=== PATIENT | female | born 1950 | race Caucasian/White ===

== ENCOUNTER 2016-03-18 20:05 | Emergency (ER) | payer MEDICARE, OTHER ==
--- NOTE | 2016-03-18 20:25 | ERPHSYRPT ---
- History of Present Illness Time Seen by Provider: 03/18/16 20:10 Source: patient Exam Limitations: no limitations Patient Subjective Stated Complaint: Pt sts shortness of breath since 1500 today she noticed when getting out of a chair. Sts short of breath since. Denies chest pain. Denies cough. Been taking Biaxin - since earlier this week for sinus infection. Sts dizzy upon standing, sts this is new for pt today. Sts she feels like her heart is "real jittery" Triage Nursing Assessment: Pt alert, oriented, able to answer all questions appropriately. Skin p/w/d, resps non-labored. SPO2 96% room air. Pt with difficulty sitting up in bed without assist. Lung sounds CTA bilat non-labored. Physician History: 66 y/o female with history of DM and HTN comes to the ER with complaints of shortness of breath, dizziness and palpitations that started today at 3 pm. Pt mentions she was sitting in a chair when she had dyspnea. Pt has been on biaxin for a sinus infection. Pt denies any fever, chills, chest pain, abdominal pain, nausea, vomiting, diarrhea, cough or wheezing. Last stress test was a couple of years ago. Timing/Duration: today Activities at Onset: none Severity of Dyspnea-Max: mild Severity of Dyspnea-Current: mild Possible Cause: no prior episodes Modifying Factors: Improves With: rest Associated Symptoms: No fever, No wheezing Allergies/Adverse Reactions: Iodinated Contrast Media - Oral and Allergy (Mild, Verified 03/18/16 21:09) Rash penicillin G Allergy (Mild, Verified 03/18/16 20:13) Sulfa (Sulfonamide Antibiotics) Allergy (Mild, Verified 03/18/16 20:13) Hives Home Medications: Allopurinol 100 mg [Zyloprim 100 mg] 100 mg PO DAILY 04/12/14 [History] Aspirin 81 gm Chew [Baby Aspirin 81 mg Chew] 81 mg PO DAILY 04/12/14 [ History] Clopidogrel Bisulfate 75 mg [PLAVIX 75 MG Tablet] 75 mg PO DAILY 04/12/14 [History] Famotidine [Pepcid] 40 mg PO DAILY 04/12/14 [History] Furosemide [Lasix] 40 mg PO DAILY 04/12/14 [History] Gabapentin 300 mg PO TID 04/12/14 [History] Insulin Glargine [Lantus Insulin] 40 units SQ DAILY 04/12/14 [History] Insulin Lispro [Humalog] 18 unit SQ BID 04/12/14 [History] Levothyroxine Sodium 75 Mcg [Synthroid 75 Mcg] 75 mcg PO DAILY 04/12/14 [ History] Metoprolol Succinate 50 mg [Toprol Xl 50 MG] 25 mg PO BID 04/12/14 [ History] [place]-3 Acid Ethyl Esters [Lovaza] 1 gm PO BID 04/12/14 [History] Rosuvastatin Calcium [Crestor] 10 mg PO DAILY 04/12/14 [History] Verapamil HCl Sr 240 mg [Isoptin S.r. 240 mg] 240 mg PO DAILY 04/12/14 [ History] PANTOPRAZOLE 40 mg Tablet [Protonix 40MG Tablet] 40 mg PO QPM 03/18/16 [ History] Hx Tetanus, Diphtheria Vaccination/Date Given: (UNSURE) Hx Influenza Vaccination/Date Given: No Hx Pneumococcal Vaccination/Date Given: No - Review of Systems Constitutional: No Fever, No Chills Eyes: No Symptoms Ears, Nose, & Throat: No Symptoms Respiratory: Dyspnea, No Cough, No Wheezing Cardiac: Palpitations, No Chest Pain, No Edema, No Syncope Abdominal/Gastrointestinal: No Abdominal Pain, No Nausea, No Vomiting, No Diarrhea Genitourinary Symptoms: No Dysuria Musculoskeletal: No Back Pain, No Neck Pain Skin: No Rash Neurological: Dizziness, No Focal Weakness, No Sensory Changes Psychological: No Symptoms Endocrine: No Symptoms All Other Systems: Reviewed and Negative - Past Medical History Pertinent Past Medical History: Yes Neurological History: No Pertinent History ENT History: No Pertinent History Cardiac History: Coronary Artery Disease, High Cholesterol, Hypertension Respiratory History: No Pertinent History Endocrine Medical History: Diabetes Type II Musculoskeletal History: No Pertinent History GI Medical History: No Pertinent History History: No Pertinent History Psycho-Social History: No Pertinent History Female Reproductive Disorders: No Pertinent History - Past Surgical History Past Surgical History: Yes (bilateral carotid end arterect) Neuro Surgical History: Other Cardiac: No Pertinent History Gastrointestinal: Cholecystectomy Genitourinary: No Pertinent History Musculoskeletal: Joint Replacement, Orthopedic Surgery Female Surgical History: No Pertinent History Other Surgical History: BRITTANY KNEE REPLACEMENT. BRITTANY CAROTID ENDOARECTOMY - Social History Smoking Status: Never smoker Exposure to second hand smoke: No Drug Use: none Patient Lives Alone: No - Nursing Vital Signs Nursing Vital Signs: Initial Vital Signs Temperature 97.7 F Temperature Source Oral Pulse Rate 54 Respiratory Rate 20 Blood Pressure 117/58 Pain Intensity 0 - Physical Exam General Appearance: mild distress, alert, anxiety Eye Exam: PERRL/EOMI Neck Exam: normal inspection, supple Cardiovascular/Chest Exam: normal heart sounds, regular rate/rhythm Abdominal/Gastrointestinal Exam: soft, No tenderness, No distention, No mass Extremity Exam: non-tender, normal range of motion, normal inspection, no calf tenderness, no pedal edema Neurologic Exam: alert, oriented x 3, cooperative, traveling clerk II-XII nml as tested, sensation nml, No motor deficits Skin Exam: normal color, warm, No dry SpO2: 98 Oxygen Delivery: Room Air - Course EKG Interpreted by Me: RATE (50), Sinus Rhythm, Other (flat t waves in V3, V4 and V6) Ordered Tests: Active Orders 24 hr Category Date Time Status EKG-ER Only STAT Care 03/18/16 20:17 Active CHEST 2 VIEWS (PA AND LAT) Stat Exams 03/18/16 20:18 Taken CBCD [CBC W DIFF] Stat Lab 03/18/16 20:29 Completed CK-Creatinine Phosphokinase Stat Lab 03/18/16 20:29 Completed CMP Stat Lab 03/18/16 20:29 Completed D-DIMER QUANTITATION Stat Lab 03/18/16 20:29 Completed Myoglobin Stat Lab 03/18/16 20:29 Completed TROPONIN Stat Lab 03/18/16 20:29 Completed Medication Summary Discontinued Medications Generic Name Dose Route Start Last Admin Trade Name Freq PRN Reason Stop Dose Admin Diphenhydramine HCl 50 mg 03/18/16 21:11 Benadryl 50 Mg/Ml IV 03/18/16 21:12 STAT ONE Hydrocortisone Sodium Succinate 100 mg 03/18/16 21:10 Solu-Cortef 100mg IV 03/18/16 21:11 STAT ONE Lab/Rad Data: Laboratory Result Diagrams 03/18/16 20:29 03/18/16 20:29 Laboratory Results 03/18/16 03/18/16 03/18/16 Range/Units 20:29 20:29 20:29 WBC (4.0-10.5) K/mm3 RBC (4.1-5.4) M/mm3 Hgb (12.0-16.0) gm/dl Hct (35-47) % MCV (78-100) fl MCH (26-32) pg MCHC (32-36) g/dl RDW (11.5-14.0) % Plt Count (150-450) K/mm3 MPV (6-9.5) fl Gran % (36.0-66.0) % Lymphocytes % (24.0-44.0) % Monocytes % (0.0-12.0) % Eosinophils % (0.00-5.0) % Basophils % (0.0-0.4) % Basophils # (0-0.4) D-Dimer 1.008 H* (0.00-0.49) mg/L Sodium 140 (136-145) mEq/L Potassium 4.4 (3.5-5.1) mEq/L Chloride 103 (98-107) mEq/L Carbon Dioxide 21.9 (21-32) mEq/L Anion Gap 19.4 H (5-15) MEQ/L BUN 30 H (9-20) mg/dL Creatinine 2.47 H (0.55-1.30) mg/dl Estimated GFR 21 ML/MIN Glucose 186 H (70-110) MG/DL Calcium 8.6 (8.5-10.1) mg/dL Total Bilirubin 0.2 (0.2-1.0) mg/dL AST 9 L (15-37) U/L ALT 15 (12-78) U/L Alkaline Phosphatase 98 (46-116) U/L Creatine Kinase 71 (26-192) U/L Myoglobin 77.0 (9.0-82.5) NG/ML Troponin I < 0.017 (0.000-0.056) ng/ml Serum Total Protein 7.1 (6.4-8.2) gm/dL Albumin 3.3 L (3.4-5.0) g/dL 03/18/16 Range/Units 20:29 WBC 9.9 (4.0-10.5) K/mm3 RBC 4.32 (4.1-5.4) M/mm3 Hgb 13.1 (12.0-16.0) gm/dl Hct 41.5 (35-47) % MCV 96.1 (78-100) fl MCH 30.3 (26-32) pg MCHC 31.6 L (32-36) g/dl RDW 13.8 (11.5-14.0) % Plt Count 220 (150-450) K/mm3 MPV 11.0 H (6-9.5) fl Gran % 63.7 (36.0-66.0) % Lymphocytes % 24.5 (24.0-44.0) % Monocytes % 10.2 (0.0-12.0) % Eosinophils % 1.3 (0.00-5.0) % Basophils % 0.3 (0.0-0.4) % Basophils # 0.03 (0-0.4) D-Dimer (0.00-0.49) mg/L Sodium (136-145) mEq/L Potassium (3.5-5.1) mEq/L Chloride (98-107) mEq/L Carbon Dioxide (21-32) mEq/L Anion Gap (5-15) MEQ/L BUN (9-20) mg/dL Creatinine (0.55-1.30) mg/dl Estimated GFR ML/MIN Glucose (70-110) MG/DL Calcium (8.5-10.1) mg/dL Total Bilirubin (0.2-1.0) mg/dL AST (15-37) U/L ALT (12-78) U/L Alkaline Phosphatase (46-116) U/L Creatine Kinase (26-192) U/L Myoglobin (9.0-82.5) NG/ML Troponin I (0.000-0.056) ng/ml Serum Total Protein (6.4-8.2) gm/dL Albumin (3.4-5.0) g/dL - Progress Progress: improved Air Movement: fair Progress Note: 03/18/16 21:32 Pt has an elevated d-dimer of over 1. The EKG shows a junctional rhythm with no p waves in lead II. The troponin is negative. Pt has a creatinine of 2.47 which is higher for her. Pt was recently started on biaxin and has been on verapamil, which this interaction may be causing ARF. Pt is not able to receive the CTA chest due to creatinine being so high. Pt will be transferred to [facility] for [facility] evaluation for dyspnea, EKG changes and will also need V/Q scan. Pt has been accepted by the Yumiko DELAROSA at [facility] - Departure Time of Disposition: 21:36 Departure Disposition: Transfer Clinical Impression: Dyspnea, Elevated d-dimer, ARF (acute renal failure) Condition: Stable Critical Care Time: Yes Critical Care Time(excluding separately billable procedures): 75-104 minutes
[2016-03-18 20:35] LABS: BASOPHIL % 0.3 % (0.0-0.4); Eosinophil % 1.3 % (0.00-5.0); Granulocytes % 63.7 % (36.0-66.0); Lymphocytes % 24.5 % (24.0-44.0); Mean Cell Volume 96.1 fl (78-100); Mean Corpuscular Hemoglobin 30.3 pg (26-32); Monocytes % 10.2 % (0.0-12.0); Platelet Count 220 K/mm3 (150-450); Red Blood Count 4.32 M/mm3 (4.1-5.4); Red Cell Distribution Width 13.8 % (11.5-14.0); White Blood Count 9.9 K/mm3 (4.0-10.5)
[2016-03-18 21:06] LABS: ALBUMIN 3.3 g/dL (3.4-5.0); ANION GAP 19.4 MEQ/L (5-15); BILIRUBIN,TOTAL 0.2 mg/dL (0.2-1.0); Carbon Dioxide 21.9 mEq/L (21-32); Potassium 4.4 mEq/L (3.5-5.1); Total Protein 7.1 gm/dL (6.4-8.2)
[2016-03-18] MEDS ORDERED: solu-CORTEF 100MG IV ONE (21:10)
[2016-03-18] MEDS ORDERED: BENADRYL 50 MG/ML IV ONE (21:11)
[2016-03-18 22:09] VITALS: BP 159/66; PULSE 64; O2SAT 97
--- NOTE | 2016-03-19 08:44 | XRAY ---
Indication: Short of breath. Dizziness. Comparison: April 12, 2014 AP/lateral chest remains clear. Heart is borderline enlarged. Vascularity normal. Bony thorax intact again with mild osteopenia and spinal degenerative changes. Impression: Stable nonacute chest.
== END 2016-03-18 22:40 | disposition short-term general hospital (02) ==
LOC: ED 20:05
DX: R06.00 Dyspnea, unspecified (principal); R79.1 Abnormal coagulation profile; N17.9 Acute kidney failure, unspecified; R42 Dizziness and giddiness; R00.2 Palpitations; E11.9 Type 2 diabetes mellitus without complications; I10 Essential (primary) hypertension; Z79.82 Long term (current) use of aspirin; Z79.4 Long term (current) use of insulin; Z79.899 Other long term (current) drug therapy
CPT/HCPCS: 36000; 36415; 71020; 80053; 82550; 83874; 84484; 85025; 85379; 93005; 93041; 99284; J1720

== ENCOUNTER 2018-07-20 06:01 | Day surgery (SDC) | payer MEDICARE, OTHER ==
[2018-07-20] MEDS ORDERED: DIPRIVAN 200 MG/20 ML IV ONE (06:02)
[2018-07-20] MEDS ORDERED: Lactated Ringers 1,000 ML IV SCH (06:30)
[2018-07-20 08:08] VITALS: O2SAT 93
[2018-07-20 08:31] VITALS: BP 125/69; PULSE 69
--- NOTE | 2018-07-20 08:48 | OP ---
SURGERY DATE/TIME: 07/20/2018 0704 PREOPERATIVE DIAGNOSIS: Screening exam. POSTOPERATIVE DIAGNOSIS: Multiple small polyps in the ascending and transverse colon and moderate to severe sigmoid diverticulosis. PROCEDURE: Colonoscopy with hot snare polypectomy. SURGEON: Dr. Nolan. ANESTHESIA: MAC. Medications given by anesthesia department. HISTORY: The patient is a 68 year-old white female presenting now for screening colonoscopy. She was appraised of the risks of the procedure including the risk of perforation, phlebitis, untoward reaction to medication, bleeding and missed lesions. The patient verbalized her understanding and desired to have the procedure performed. DESCRIPTION OF PROCEDURE: The patient given medications by the anesthesia department. She had continuous pulse oximetry, ECG monitoring, intermittent blood pressure monitoring, and tidal CO2 monitoring during the examination. She was placed in the left lateral decubitus position. A digital rectal examination was performed and revealed normal anal sphincter tone and no masses. The flexible Olympus pediatric colonoscope was used to intubate the rectum. A view of the colon was developed sequentially to the cecum. Upon insertion and withdrawal, including a retroflex view in the rectum was noted multiple polyps that were measuring approximately 1 cm size. These were removed using a combination of hot snare and cold snare techniques to remove the polyps that were seen. There was also noted moderate sigmoid diverticulosis otherwise no other mucosal lesions being encountered. The scope was removed from the patient who tolerated the procedure well and was sent back to OP recovery in good condition. The prep was noted to be fair to good.
== END 2018-07-20 08:40 | disposition home or self-care (01) ==
LOC: SDC 06:01
PROVIDERS: ATTEND Family Medicine
DX: Z12.11 Encounter for screening for malignant neoplasm of colon (principal); D12.2 Benign neoplasm of ascending colon; K57.30 Diverticulosis of large intestine without perforation or abscess without bleeding; E11.9 Type 2 diabetes mellitus without complications; Z79.4 Long term (current) use of insulin; Z79.899 Other long term (current) drug therapy
CPT/HCPCS: 82962; 99100; J2704

== ENCOUNTER 2019-08-30 05:46 | Day surgery (SDC) | payer MEDICARE, OTHER ==
[~2019-08-30 05:46] MED LIST: DIPRIVAN 200 MG/20 ML IV ONE
[2019-08-30] MEDS ORDERED: Lactated Ringers 1,000 ML IV SCH (06:30)
--- NOTE | 2019-08-30 08:01 | OP ---
SURGERY DATE/TIME: 08/30/2019 0729 PREOPERATIVE DIAGNOSIS: Anemia. POSTOPERATIVE DIAGNOSIS: Multiple gastric polyps and delayed gastric emptying. PROCEDURE: Esophagogastroduodenoscopy with biopsy using cold forceps. SURGEON: Dr. Nolan. ANESTHESIA: Medications were given by the anesthesia department. HISTORY: The patient is a 69 year old white female presenting now for endoscopic evaluation. She reports she previously had a colonoscopy which appeared to have polyps a year or so ago. The patient reports that she has been anemic and was felt the need to have endoscopic evaluation. The patient was noted to be taking aspirin and Plavix. The patient was appraised of the risks of the procedure including the risk of perforation, phlebitis, untoward reaction to medication, bleeding and missed lesions. The patient verbalized her understanding and desired to have the procedure performed. DESCRIPTION OF PROCEDURE: The patient was given the medications by the anesthesia department. She had continuous pulse oximetry, ECG monitoring, intermittent blood pressure monitoring and tidal CO2 monitoring during the examination. She was placed in the left lateral decubitus position. A bite block was placed. The flexible Olympus gastroscope was used to intubate the oropharynx. A view of the larynx was obtained and was normal. The scope was easily introduced in the esophagus which appeared to be normal throughout its length. The stomach was entered where large amount of retained food products were noted. There were also noted to be fairly large number of gastric polyps noted throughout the body of the stomach. The scope was passed along the greater curvature of the stomach to the antrum. The pylorus encountered and intubated. Duodenum inspected and found to be normal. The scope is withdrawn towards the stomach. A retroflex view was obtained but was obscured by the food stuff. Biopsies were obtained from communications representative gastric polyps to rule out any dysplastic or adenomatous change as they are highly suspected to be benign gastric polyps. The scope was then removed from the patient who tolerated the procedure well and was sent back to outpatient recovery in good condition.
[2019-08-30 08:42] VITALS: O2SAT 94
[2019-08-30 08:51] VITALS: BP 135/77; PULSE 68
== END 2019-08-30 08:51 | disposition home or self-care (01) ==
LOC: SDC 05:46
PROVIDERS: ATTEND Family Medicine
DX: K31.7 Polyp of stomach and duodenum (principal); K30 Functional dyspepsia; I10 Essential (primary) hypertension; E11.9 Type 2 diabetes mellitus without complications; E03.9 Hypothyroidism, unspecified; Z79.899 Other long term (current) drug therapy
CPT/HCPCS: 82962; 88305; 99100; J2704

== ENCOUNTER 2020-07-05 12:43 | Emergency (ER) | payer MEDICARE, OTHER ==
[2020-07-05 13:03] LABS: Absolute Neutrophil Ct (ANC) 5.56 (1.4-6.9); BASOPHIL % 0.1 % (0.0-0.4); Basophil (Absolute #) 0.01 (0-0.4); Eosinophil % 1.7 % (0.00-5.0); Eosinophil (Absolute #) 0.13 (0-0.5); Hematocrit 40.2 % (35-47); Hemoglobin 12.6 gm/dl (12.0-16.0); Lymphocyte (Absolute #) 1.48 (1.0-4.6); Lymphocytes % 19.1 % (24.0-44.0); Mean Corpuscular Hgb Concent. 31.3 g/dl (32-36); Mean Platelet Volume 10.8 fl (7.5-11.0); Monocyte (Absolute #) 0.58 (0.0-1.3); Monocytes % 7.5 % (0.0-12.0); Neutrophil % 71.6 % (36.0-66.0); Platelet Count 195 K/mm3 (150-450); Red Blood Count 4.06 M/mm3 (4.1-5.4); Red Cell Distribution Width 13.9 % (11.5-14.0); White Blood Count 7.8 K/mm3 (4.0-10.5)
[2020-07-05] MEDS ORDERED: Nitrostat 0.4 MG (ED) SL ONE (13:08)
[2020-07-05] MEDS: Nitrostat 0.4 MG Tablet SL STA ×2 (13:10→14:39)
[2020-07-05 13:11] LABS: INR 0.98 (0.8-3.0); PROTIME 11.1 SECONDS (9.95-12.35)
[2020-07-05] MEDS: BABY ASPIRIN 81 MG CHEW PO ONE (13:11)
[2020-07-05] MEDS ORDERED: Zofran 4 MG/2 ML VIAL ONE (13:12)
[2020-07-05] MEDS ORDERED: MORPHINE SULFATE 4 MG INJ ONE ×2 (13:12→13:51)
[2020-07-05] MEDS: Zofran 4 MG/2 ML VIAL IV ONE (13:13)
[2020-07-05] MEDS: MORPHINE SULFATE 4 MG INJ IV ONE ×2 (13:13→13:55)
[2020-07-05 13:15] LABS: ALBUMIN 4.7 g/dL (3.5-5.0); ANION GAP 16.3 MEQ/L (5-15); BILIRUBIN,TOTAL 0.3 mg/dL (0.2-1.3); Calcium 10.7 mg/dL (8.4-10.2); Creatinine 1 1.81 mg/dL (0.52-1.04); EST GLOMERULAR FILTRATION RATE 29.2 ML/MIN; MAGNESIUM 2.2 mg/dL (1.6-2.3); Potassium 4.8 mmol/L (3.5-5.1); Total Protein 7.9 g/dL (6.3-8.2)
--- NOTE | 2020-07-05 14:10 | ERPHSYRPT ---
- History of Present Illness Historian: patient Patient Subjective Stated Complaint: Pt states that she has been having chest pain off and on for the past week and today she went out to water her greene and she had increased pain in her left chest Triage Nursing Assessment: Pt brought to the ER by her , hypertensive, moaning, holding chest, pulses normal, rates pain 6/10, feels like she has heart burn, sees Dr. Weems, nausea, skin n/w/d Physician History: 70 yo wf w L substernal CP w rad to back x30 min. She has had similar pain x 1 wk. She has had nausea/dyspnea wo vomiting/diarrhea. Nothing makes the pain better or worse. She has a h/o DM/HTN/Hyperlipidemia. She denies CAD/MS and has had cardiac cath x2 at [facility] wo stenting. Pt does not smoke. Pain 4/10 but has been up to a 10. Timing/Duration: other (30 min before arrival) Quality: aching, tightness Location: substernal Chest Pain Radiation: back Severity of Pain-Max: severe Severity of Pain-Current: moderate Modifying Factors: Improves With: nothing Associated Symptoms: denies symptoms, nausea, shortness of breath Prior Chest Pain/Cardiac Workup: cardiac cath Nitro Today/Relief: no nitro taken today Aspirin Treatment Today: 81 mg x 1 Allergies/Adverse Reactions: Iodinated Contrast Media [Iodinated Contrast Media - Oral and] Allergy (Mild, Verified 07/05/20 12:54) Rash penicillin G Allergy (Mild, Verified 07/05/20 12:54) Rash Sulfa (Sulfonamide Antibiotics) Allergy (Mild, Verified 07/05/20 12:54) Hives codeine Adverse Reaction (Verified 07/05/20 12:54) Nausea Home Medications: Allopurinol 100 mg [Zyloprim 100 mg] 100 mg PO DAILY 04/12/14 [History] Clopidogrel Bisulfate 75 mg [PLAVIX 75 MG Tablet] 75 mg PO DAILY 04/12/14 [History] Famotidine [Pepcid] 40 mg PO DAILY 04/12/14 [History] Furosemide [Lasix] 40 mg PO DAILY 04/12/14 [History] Gabapentin 300 mg PO BID 04/12/14 [History] Insulin Glargine [Lantus Insulin] 40 units SQ DAILY 04/12/14 [History] Insulin Lispro [Humalog] 18 unit SQ BID 04/12/14 [History] Levothyroxine Sodium 75 Mcg [Synthroid 75 Mcg] 75 mcg PO DAILY 04/12/14 [History] [place]-3 Acid Ethyl Esters [Lovaza] 1 gm PO BID 04/12/14 [History] Rosuvastatin Calcium [Crestor] 10 mg PO DAILY 04/12/14 [History] PANTOPRAZOLE 40 mg Tablet [Protonix 40MG Tablet] 40 mg PO QPM 03/18/16 [History] Alendronate Sodium 70 mg [Fosamax 70 MG] 70 mg PO Q7D@0600 07/18/18 [History] Amlodipine Besylate 5 mg [Norvasc 5 mg] 10 mg PO DAILY 07/18/18 [History] Calcifediol [Rayaldee] 30 mcg PO DIRECTIONS UNKNOWN 07/18/18 [History] Losartan Potassium 50 mg [Cozaar 50 MG] 50 mg PO BID 07/18/18 [History] Aspirin EC 81 mg [Ecotrin 81 mg] 81 mg PO DAILY 07/05/20 [History] Hx Tetanus, Diphtheria Vaccination/Date Given: (UNSURE) Hx Influenza Vaccination/Date Given: No Hx Pneumococcal Vaccination/Date Given: No Travel Risk - International Travel Have you traveled outside of the country in past 3 weeks: No - Coronavirus Screening Are you exhibiting any of the following symptoms?: No Close contact with a COVID-19 positive Pt in past 14-21 Days: No - Vaccine Status Have you recieved a Covid-19 vaccination: Yes 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 - Vaccination Dates Date of 2cond Vaccination (if applicable): 06/04/2020 - Review of Systems Constitutional: No Symptoms Eyes: No Symptoms Ears, Nose, & Throat: No Symptoms Respiratory: Dyspnea Cardiac: No Symptoms, Chest Pain Abdominal/Gastrointestinal: No Symptoms, Nausea Genitourinary Symptoms: No Symptoms Musculoskeletal: No Symptoms Skin: No Symptoms Neurological: No Symptoms Psychological: No Symptoms Endocrine: No Symptoms Hematologic/Lymphatic: No Symptoms Immunological/Allergic: No Symptoms - Past Medical History Pertinent Past Medical History: Yes Neurological History: Stroke, TIA ENT History: No Pertinent History Cardiac History: Arrhythmia, Coronary Artery Disease, High Cholesterol, Hypertension Respiratory History: No Pertinent History Endocrine Medical History: Diabetes Type II, Hypothyroidism Musculoskeletal History: No Pertinent History GI Medical History: GERD History: Renal Disease, Other Psycho-Social History: No Pertinent History Female Reproductive Disorders: No Pertinent History Other Medical History: poor kidney function,stroke-tia 02/2009. - Past Surgical History Past Surgical History: Yes Neuro Surgical History: Other Cardiac: Cardiac Catheterization Respiratory: No Pertinent History Gastrointestinal: Cholecystectomy Genitourinary: No Pertinent History Musculoskeletal: Joint Replacement, Orthopedic Surgery Female Surgical History: Dilation & Curettage Other Surgical History: BRITTANY KNEE REPLACEMENT,shoulder surgery, left knee scopes. BRITTANY CAROTID endarterectomy. stitches to forehead and head. - Social History Smoking Status: Never smoker Exposure to second hand smoke: No Drug Use: none Patient Lives Alone: No Significant Family History: no pertinent family hx - Nursing Vital Signs Nursing Vital Signs: Initial Vital Signs Temperature 98.6 F 07/05/20 12:45 Pulse Rate 84 07/05/20 12:45 Respiratory Rate 18 07/05/20 12:45 Blood Pressure 195/100 07/05/20 12:45 O2 Sat by Pulse Oximetry 99 07/05/20 12:45 Pain Scale Pain Intensity 6 - Physical Exam General Appearance: no apparent distress Eye Exam: PERRL/EOMI, eyes nml inspection Ears, Nose, Throat Exam: normal ENT inspection, TMs normal, pharynx normal Neck Exam: normal inspection, non-tender, full range of motion Respiratory Exam: normal breath sounds, lungs clear, airway intact, No respiratory distress Cardiovascular Exam: regular rate/rhythm, normal heart sounds, normal peripheral pulses, No murmur Gastrointestinal/Abdomen Exam: soft, normal bowel sounds, No tenderness Back Exam: normal inspection, normal range of motion Extremity Exam: normal inspection, normal range of motion Neurologic Exam: alert, oriented x 3, cooperative, curb attendant II-XII nml as tested, normal mood/affect Skin Exam: normal color Lymphatic Exam: No adenopathy SpO2 Interpretation: normal SpO2: 99 O2 Delivery: Room Air - Course Nursing assessment & vital signs reviewed: Yes EKG Interpreted by Me: RATE (NSR/R78/Normal QT-QTc/Low voltage/Flat T waves/No acute ST changes/EKG#2 no change/EKG #3 no change/EKG #4Sinus jens no other changes) Ordered Tests: Active Orders 24 hr Category Date Time Status EKG-ER Only STAT Care 07/05/20 12:47 Completed CHEST 1 VIEW (PORTABLE) Stat Exams 07/05/20 13:33 Completed CBC W DIFF Stat Lab 07/05/20 13:02 Completed CMP Stat Lab 07/05/20 13:02 Completed MAGNESIUM Stat Lab 07/05/20 13:02 Completed PROTIME WITH INR Stat Lab 07/05/20 13:02 Completed PTT Stat Lab 07/05/20 13:02 Completed TROPONIN Q3H Lab 07/05/20 13:02 Completed Medication Summary Discontinued Medications Generic Name Dose Route Start Last Admin Trade Name Freq PRN Reason Stop Dose Admin Aspirin 243 mg 07/05/20 13:08 07/05/20 13:11 Baby Aspirin 81 Mg Chew PO 07/05/20 13:09 243 mg STAT ONE Administration Nitroglycerin/Dextrose 250 mls @ 1.5 mls/hr 07/05/20 14:31 07/05/20 14:43 Ntg 0.2mg/Ml In D5w Glass IV 08/04/20 14:30 5 mcg/min .Q24H PRN 1.5 mls/hr CHEST PAIN Administration Protocol 5 MCG/MIN Nitroglycerin/Dextrose Confirm 07/05/20 14:41 Ntg 0.2mg/Ml In D5w Glass Administered 07/05/20 14:42 Dose 250 mls @ ud IV .STK-MED ONE Morphine Sulfate 4 mg 07/05/20 13:10 07/05/20 13:13 Morphine Sulfate 4 Mg Inj IV 07/05/20 13:11 4 mg STAT ONE Administration Morphine Sulfate Confirm 07/05/20 13:12 Morphine Sulfate 4 Mg Inj Administered 07/05/20 13:13 Dose 4 mg .ROUTE .STK-MED ONE Morphine Sulfate 4 mg 07/05/20 13:50 07/05/20 13:55 Morphine Sulfate 4 Mg Inj IV 07/05/20 13:51 4 mg STAT ONE Administration Morphine Sulfate Confirm 07/05/20 13:51 Morphine Sulfate 4 Mg Inj Administered 07/05/20 13:52 Dose 4 mg .ROUTE .STK-MED ONE Nitroglycerin 0.4 mg 07/05/20 13:07 07/05/20 13:10 Nitrostat 0.4 Mg Tablet SL 07/05/20 13:08 0.4 mg ONCE STA Administration Nitroglycerin Confirm 07/05/20 13:08 Nitrostat 0.4 Mg (Ed) Administered 07/05/20 13:09 Dose 0.4 mg SL .STK-MED ONE Nitroglycerin 0.4 mg 07/05/20 14:29 07/05/20 14:39 Nitrostat 0.4 Mg Tablet SL 07/05/20 14:30 0.4 mg ONCE STA Administration Ondansetron HCl 4 mg 07/05/20 13:11 07/05/20 13:13 Zofran 4 Mg/2 Ml Vial IV 07/05/20 13:12 4 mg STAT ONE Administration Ondansetron HCl Confirm 07/05/20 13:12 Zofran 4 Mg/2 Ml Vial Administered 07/05/20 13:13 Dose 4 mg .ROUTE .STK-MED ONE Lab/Rad Data: Laboratory Result Diagrams 07/05/20 13:02 07/05/20 13:02 Laboratory Results 07/05/20 07/05/20 07/05/20 Range/Units 13:02 13:02 13:02 WBC (4.0-10.5) K/mm3 RBC (4.1-5.4) M/mm3 Hgb (12.0-16.0) gm/dl Hct (35-47) % MCV (78-100) fl MCH (26-32) pg MCHC (32-36) g/dl RDW (11.5-14.0) % Plt Count (150-450) K/mm3 MPV (7.5-11.0) fl Gran % (36.0-66.0) % Eos # (Auto) (0-0.5) Absolute Lymphs (auto) (1.0-4.6) Absolute Monos (auto) (0.0-1.3) Lymphocytes % (24.0-44.0) % Monocytes % (0.0-12.0) % Eosinophils % (0.00-5.0) % Basophils % (0.0-0.4) % Absolute Granulocytes (1.4-6.9) Basophils # (0-0.4) PT 11.1 (9.95-12.35) SECONDS INR 0.98 (0.8-3.0) APTT 30.0 (25.3-37.0) SECONDS Sodium 140 (137-145) mmol/L Potassium 4.8 (3.5-5.1) mmol/L Chloride 105 (98-107) mmol/L Carbon Dioxide 24 (22-30) mmol/L Anion Gap 16.3 H (5-15) MEQ/L BUN 39 H (7-17) mg/dL Creatinine 1.81 H (0.52-1.04) mg/dL Estimated GFR 29.2 ML/MIN Glucose 107 H (74-106) mg/dL Calcium 10.7 H (8.4-10.2) mg/dL Magnesium 2.2 (1.6-2.3) mg/dL Total Bilirubin 0.30 (0.2-1.3) mg/dL AST 24 (14-36) U/L ALT 11 (0-35) U/L Alkaline Phosphatase 66 (38-126) U/L Troponin I < 0.012 (0.000-0.034) ng/mL Serum Total Protein 7.9 (6.3-8.2) g/dL Albumin 4.7 (3.5-5.0) g/dL 07/05/20 Range/Units 13:02 WBC 7.8 (4.0-10.5) K/mm3 RBC 4.06 L (4.1-5.4) M/mm3 Hgb 12.6 (12.0-16.0) gm/dl Hct 40.2 (35-47) % MCV 99.0 (78-100) fl MCH 31.0 (26-32) pg MCHC 31.3 L (32-36) g/dl RDW 13.9 (11.5-14.0) % Plt Count 195 (150-450) K/mm3 MPV 10.8 (7.5-11.0) fl Gran % 71.6 H (36.0-66.0) % Eos # (Auto) 0.13 (0-0.5) Absolute Lymphs (auto) 1.48 (1.0-4.6) Absolute Monos (auto) 0.58 (0.0-1.3) Lymphocytes % 19.1 L (24.0-44.0) % Monocytes % 7.5 (0.0-12.0) % Eosinophils % 1.7 (0.00-5.0) % Basophils % 0.1 (0.0-0.4) % Absolute Granulocytes 5.56 (1.4-6.9) Basophils # 0.01 (0-0.4) PT (9.95-12.35) SECONDS INR (0.8-3.0) APTT (25.3-37.0) SECONDS Sodium (137-145) mmol/L Potassium (3.5-5.1) mmol/L Chloride (98-107) mmol/L Carbon Dioxide (22-30) mmol/L Anion Gap (5-15) MEQ/L BUN (7-17) mg/dL Creatinine (0.52-1.04) mg/dL Estimated GFR ML/MIN Glucose (74-106) mg/dL Calcium (8.4-10.2) mg/dL Magnesium (1.6-2.3) mg/dL Total Bilirubin (0.2-1.3) mg/dL AST (14-36) U/L ALT (0-35) U/L Alkaline Phosphatase (38-126) U/L Troponin I (0.000-0.034) ng/mL Serum Total Protein (6.3-8.2) g/dL Albumin (3.5-5.0) g/dL - Progress Progress: improved Progress Note: 07/05/20 14:16 243mg po ASA 07/05/20 14:18 SL NTG x1 w mild improvement 4mg IV MSO4 w improvement 07/05/20 14:22 Pt developed more chest pain, so 4mg IV MSO4 given w improvement in pain She developed some bradycardia after the second MSO4 dose which resolved wo treatment 07/05/20 14:55 Pt developed more chest pain so SL NTG given x1 and NTG drip started at 5umg w improvement in pain [facility] per ER physician. 07/05/20 15:36 Pt's pain 1/10 w NTG drip. Pt resting and comfortable. Unable to do CTA of chest due to GFR of 29 and severe IV dye allergy 07/05/20 23:18 Pt stable when EMS assumed care of pt. Counseled pt/family regarding: lab results, diagnosis, rad results - Departure Departure Disposition: Transfer Clinical Impression: Unstable angina Condition: Stable Critical Care Time: Yes Critical Care Time(excluding separately billable procedures): Critical 30-74 mins Referrals: RIGO PHILLIP [Primary Care Provider] - Instructions: Angina (DC), Chest Pain (DC)
[2020-07-05] MEDS ORDERED: Ntg 0.2MG/Ml in D5W GLASS*** 250 ML IV ONE (14:41)
[2020-07-05] MEDS: Ntg 0.2MG/Ml in D5W GLASS*** 250 ML IV PRN (14:43)
[2020-07-05 15:42] VITALS: BP 156/76; PULSE 74
--- NOTE | 2020-07-05 19:06 | XRAY ---
Indication: Chest pain. Comparison: June 25, 2018. Portable chest demonstrates borderline cardiomegaly obscuring left lung base. Remaining lungs are clear. Bony thorax intact with mild osteopenia and degenerative changes.
[2020-07-05 23:19] VITALS: O2SAT 99
== END 2020-07-05 16:08 | disposition short-term general hospital (02) ==
LOC: ED 12:43
DX: I20.0 Unstable angina (principal); I10 Essential (primary) hypertension; I25.10 Atherosclerotic heart disease of native coronary artery without angina pectoris; Z79.899 Other long term (current) drug therapy; E03.9 Hypothyroidism, unspecified; E11.9 Type 2 diabetes mellitus without complications; E78.00 Pure hypercholesterolemia, unspecified; Z86.73 Personal history of transient ischemic attack (TIA), and cerebral infarction without residual deficits; R06.02 Shortness of breath
CPT/HCPCS: 36000; 36415; 71045; 80053; 83735; 84484; 85025; 85610; 85730; 93005; 96374; 96375; 96376; 99285; 99291; J2270; J2405; A9270-GY

== ENCOUNTER 2020-07-27 05:52 | Day surgery (SDC) | payer MEDICARE, OTHER ==
[2020-07-27] MEDS ORDERED: Lactated Ringers 1,000 ML IV SCH (06:30)
[2020-07-27] MEDS ORDERED: DIPRIVAN 200 MG/20 ML IV ONE (07:02)
[2020-07-27] MEDS ORDERED: Xylocaine-Mpf 2% 5 Ml Vial ONE (07:02)
[2020-07-27 09:00] VITALS: PULSE 72; O2SAT 97
[2020-07-27 09:01] VITALS: BP 112/63
--- NOTE | 2020-07-27 14:58 | OP ---
SURGERY DATE/TIME: 07/27/2020 0702 PREOPERATIVE DIAGNOSES: 1) Lower area chest pain. 2) History of colon polyps. POSTOPERATIVE DIAGNOSES: 1) Multiple gastric polyps. 2) Moderate gastritis. 3) Hiatal hernia. 4) Multiple colon polyps. PROCEDURES: 1) Esophagogastroduodenoscopy with cold forceps biopsy. 2) Colonoscopy with cold forceps biopsy and hot polypectomy snare polypectomy. SURGEON: Dr. Nolan. ANESTHESIA: Medications were given by the anesthesia department. HISTORY: The patient is a 70 year old white female presenting now for endoscopic evaluation. She was appraised of the risks of the procedure including the risk of perforation, phlebitis, untoward reaction to medication, bleeding and missed lesions. The patient verbalized her understanding and desired to have the procedure performed. DESCRIPTION OF PROCEDURE: The patient was given the medications by the anesthesia department. She had continuous pulse oximetry, ECG monitoring, intermittent blood pressure monitoring and tidal CO2 monitoring during the examination. She was placed in the left lateral decubitus position. A bite block was placed and the flexible Olympus gastroscope was used to intubate the oropharynx. A view of the larynx was obtained and was normal. The scope was easily introduced in the esophagus which appeared to be essentially normal throughout its length. The stomach was entered where multiple gastric polyps were seen. The stomach was insufflated to allow better inspection. Multiple biopsies were obtained from the gastric polyps which were felt to be benign in nature. There was also noted moderate gastritis. The scope was passed along the greater curvature of the stomach to the antrum which again appeared to have the appearance of chemical gastritis. The pylorus encountered and intubated. The duodenum inspected and found to be normal. The scope is withdrawn towards the stomach. A retroflex view was obtained and observed the appearance of a small hiatal hernia but no other mucosal lesions being encountered. The scope was then removed from the patient. Next, a digital rectal examination was performed and revealed normal anal sphincter tone. External hemorrhoids were noted. No masses. The flexible Olympus pediatric colonoscope was used to intubate the rectum. A view of the colon was developed sequentially to the cecum. Upon insertion and withdrawal there were noted small polyps in the ascending colon one which was larger in nature and was removed using hot polypectomy snare. The others were biopsied using cold biopsy technique and destroyed the lesions. There was also noted to be sigmoid diverticulosis. The scope was removed from the patient who tolerated the procedure well and was sent back to OP recovery in good condition. The prep was noted to be fair to good.
== END 2020-07-27 09:04 | disposition home or self-care (01) ==
LOC: SDC 05:52
PROVIDERS: ATTEND Family Medicine
DX: K31.7 Polyp of stomach and duodenum (principal); K29.70 Gastritis, unspecified, without bleeding; K44.9 Diaphragmatic hernia without obstruction or gangrene; D12.2 Benign neoplasm of ascending colon; D12.3 Benign neoplasm of transverse colon; E78.00 Pure hypercholesterolemia, unspecified; E11.9 Type 2 diabetes mellitus without complications; Z79.899 Other long term (current) drug therapy
CPT/HCPCS: 82947; 88305; 99100; J2704

== ENCOUNTER 2021-09-24 05:56 | Day surgery (SDC) | payer MEDICARE, OTHER ==
[2021-09-24] MEDS ORDERED: Lactated Ringers 1,000 ML IV SCH (06:00)
[2021-09-24] MEDS ORDERED: Lactated Ringers 1,000 ML IV ONE (06:32)
[2021-09-24] MEDS ORDERED: DIPRIVAN 200 MG/20 ML IV ONE ×2 (07:26→07:46)
--- NOTE | 2021-09-24 08:09 | OP ---
SURGERY DATE/TIME: 09/24/2021 4350 PREOPERATIVE DIAGNOSIS: History of colon polyps. POSTOPERATIVE DIAGNOSES: 1) Severe sigmoid diverticulosis. 2) Multiple small polyps in the transverse and ascending colon. PROCEDURE: Colonoscopy with cold forceps biopsy. SURGEON: Dr. Jerrell Nolan. ANESTHESIA: MAC. Medications given by anesthesia department. HISTORY: The patient is a 71-year-old white female with history of colon polyps presents now for repeat evaluation. It has been approximately three years since her previous examination. The patient was appraised of the risks of the procedure including the risk of perforation, phlebitis, untoward reaction to medication, bleeding and missed lesions. The patient verbalized her understanding and desired to have the procedure performed. DESCRIPTION OF PROCEDURE: The patient was given the medications by the anesthesia department. She had continuous pulse oximetry, ECG monitoring, intermittent blood pressure monitoring during the examination. She was placed in the left lateral decubitus position. A digital rectal examination was performed and revealed normal anal sphincter tone and no masses. The flexible Olympus pediatric colonoscope was used to intubate the rectum. A view of the colon was developed sequentially to the cecum. Upon insertion and withdrawal was noted moderate to severe sigmoid diverticulosis. There were noted multiple small polyps through the colon particularly in the transverse and one in the ascending colon. These were biopsied and destroyed using multiple passes of cold forceps biopsy. Upon insertion and withdrawal including a retroflex view in the rectum, no mucosal lesions being encountered the scope was removed from the patient who tolerated the procedure well and was sent back to OP recovery in good condition. The prep was noted to be fair to good.
[2021-09-24 08:32] VITALS: PULSE 63
[2021-09-24 08:42] VITALS: BP 148/75; O2SAT 97
== END 2021-09-24 08:48 | disposition home or self-care (01) ==
LOC: SDC 05:56
PROVIDERS: ATTEND Family Medicine
DX: Z09 Encounter for follow-up examination after completed treatment for conditions other than malignant neoplasm (principal); Z86.010 Personal history of colon polyps; D12.2 Benign neoplasm of ascending colon; D12.4 Benign neoplasm of descending colon; D12.3 Benign neoplasm of transverse colon; K57.30 Diverticulosis of large intestine without perforation or abscess without bleeding; E11.9 Type 2 diabetes mellitus without complications
CPT/HCPCS: 82947; 99100; J2704